=== PATIENT | female | born 2000 | race Caucasian/White ===

== ENCOUNTER 2020-03-20 19:59 | Observation (INO) ==
[2020-03-20 21:57] LABS: Bilirubin,Urine Negative (Negative); Blood,Urine Negative (Negative); Clarity,Urine Clear (Clear); Color,Urine Light-Yellow (Yellow); Glucose,Urine (UA) Normal (Normal); Ketones,Urine Negative (Negative); Leukocyte Esterase,Urine Negative (Negative); Nitrite,Urine Negative (Negative); PH,Urine 6.5 pH Units (5.0-8.0); Protein,Urine Trace mg/dL (Neg-Trace); Specific Gravity,Urine 1.023 (1.010-1.025); Urobilinogen,Urine Normal (Normal)
[2020-03-20 23:15] LABS: Candida DNA Not Detected (Not Detect); Gardnerella DNA DETECTED (Not Detect); Trichomonas DNA Not Detected (Not Detect)
== END 2020-03-20 21:45 | disposition home or self-care (01) ==
LOC: 1NENULAB
PROVIDERS: ADMIT Registered Nurse; ATTEND Registered Nurse

== ENCOUNTER 2020-04-17 10:13 | Inpatient (IN) ==
[2020-04-17] MEDS ORDERED: Famotidine 20 MG/2 ML VIAL IVP PRN (10:26)
[2020-04-17] MEDS ORDERED: Azithromycin 500 MG in 0.9 % Sodium Chloride 250 ML IVPB ONE (10:26)
[2020-04-17] MEDS ORDERED: miSOPROStoL 25 MCG TABLET PO PRN (10:26)
[2020-04-17] MEDS ORDERED: Naloxone 0.4 MG/ML INJ IVP PRN (10:26)
[2020-04-17] MEDS ORDERED: Lidocaine 1% 20 ML MDV ID PRN (10:26)
[2020-04-17] MEDS ORDERED: Metoclopramide 10 MG/2 ML VIAL IVP PRN (10:26)
[2020-04-17] MEDS ORDERED: Ondansetron 4 MG/2 ML VIAL IVP PRN (10:26)
[2020-04-17] MEDS ORDERED: *HR* Nalbuphine 10 MG/ML AMPUL IV PRN (10:26)
[2020-04-17] MEDS ORDERED: Ringers Solution, Lactated 1,000 ML IVC SCH (10:30)
[2020-04-17] MEDS ORDERED: Oxytocin 20 units/ LR 1000 mL 20 UNIT/1,000 ML BAG IVC SCH (10:30)
[2020-04-17 10:55] LABS: Basophils % 0.3 %; Eosinophils # 0.1 K/mcL (0.0-0.6); Eosinophils % 0.7 %; Hematocrit 37.6 % (35.3-44.9); Hemoglobin 12.4 g/dL (11.5-15.4); Immature Granulocytes % 0.8 % (0-4); Lymphocytes # 1.8 K/mcL (0.6-4.6); Lymphocytes % 16.9 %; Mean Corpuscular Hemoglobin 30.8 pg (28.0-33.3); Mean Corpuscular Volume 93.3 fL (83.0-100.0); Mean Platelet Volume 11.3 fL (9.4-12.4); Monocytes # 0.7 K/mcL (0.0-1.3); Monocytes % 6.1 %; Platelet Count 178 K/mcL (140-400); Red Blood Count 4.03 M/mcL (3.82-4.97); Red Cell Distribution Width 13.6 % (11.5-14.5); Segmented Neutrophils % 75.2 %; White Blood Count 10.7 K/mcL (4.3-11.1)
[2020-04-17 11:08] LABS: Amphetamine Screen,Urine Negative ng/mL (Cutoff=1000); Barbiturate Screen,Urine Negative ng/mL (Cutoff=200); Benzodiazepines Screen,Urine Negative ng/mL (Cutoff=200); Cannabinoid Screen,Urine Negative ng/mL (Cutoff = 50); Cocaine Screen,Urine Negative ng/mL (Cutoff= 300); Opiate Screen,Urine Negative ng/mL (Cutoff=300); Phencyclidine Screen,Urine Negative ng/mL (Cutoff=25)
[2020-04-18] MEDS ORDERED: *HR* FentaNYL (PF) 100 MCG/2 ML VIAL EP ONE (01:29)
[2020-04-18] MEDS ORDERED: Bupivacaine-MPF 0.25% 10 ML VIAL EP ONE (01:29)
[2020-04-18] MEDS ORDERED: EPHEDrine 50 MG/ML VIAL IVP PRN (01:29)
[2020-04-18] MEDS ORDERED: Epidural Premix (fent/bupiv) 110 ML EP SCH (01:30)
[2020-04-18] MEDS ORDERED: Bupivacaine-MPF 0.25% 10 ML VIAL ONE (01:31)
[2020-04-18] MEDS ORDERED: *HR* FentaNYL (PF) 100 MCG/2 ML VIAL ONE (01:31)
[2020-04-18] MEDS ORDERED: Epidural Premix (fent/bupiv) 110 ML EP ONE (01:34)
[2020-04-18] MEDS ORDERED: Benzocaine/Menthol 56 GM AEROSOL SPRAY TP PRN (11:46)
[2020-04-18] MEDS ORDERED: Oxytocin 20 units/ LR 1000 mL 20 UNIT/1,000 ML BAG IVC SCH (11:46)
[2020-04-18] MEDS ORDERED: Lanolin 7 G OINT...G. TP PRN (11:46)
[2020-04-18] MEDS: Ibuprofen 600 MG TABLET PO PRN ×2 (17:22→23:25)
[2020-04-19 04:26] LABS: Basophils % 0.2 %; Eosinophils # 0.1 K/mcL (0.0-0.6); Eosinophils % 0.5 %; Hematocrit 35.6 % (35.3-44.9); Hemoglobin 11.3 g/dL (11.5-15.4); Immature Granulocytes % 0.6 % (0-4); Lymphocytes # 2.3 K/mcL (0.6-4.6); Mean Corpuscular HGB Conc 31.7 g/dL (31.6-35.5); Mean Corpuscular Hemoglobin 29.7 pg (28.0-33.3); Mean Corpuscular Volume 93.7 fL (83.0-100.0); Mean Platelet Volume 11.6 fL (9.4-12.4); Monocytes # 1.2 K/mcL (0.0-1.3); Monocytes % 6.3 %; Neutrophils # 15.5 K/mcL (1.6-8.9); Platelet Count 176 K/mcL (140-400); Red Cell Distribution Width 14.1 % (11.5-14.5); Segmented Neutrophils % 80.4 %
[2020-04-19 04:28] LABS: White Blood Count 19.3 K/mcL (4.3-11.1)
[2020-04-19] MEDS: Ibuprofen 600 MG TABLET PO PRN (05:23)
[2020-04-19 08:03] VITALS: BP 101/63
[2020-04-19] MEDS ORDERED: Prenatal Vit/FA 1 EACH TABLET PO SCH (09:00)
== END 2020-04-19 13:00 | disposition home or self-care (01) | DRG 560 ==
LOC: 1NENULAB 10:13 → 1NENUOBS 04-18 12:39
PROVIDERS: ADMIT Registered Nurse; ATTEND Registered Nurse